=== PATIENT | female | born 1935 | race African-American/Black ===

== ENCOUNTER 2024-08-30 13:49 | Inpatient (IN) | payer MEDICARE, MEDICAID, SELFPAY ==
[2024-08-30] VITALS (15 sets, daily range): BP systolic 101–151; BP diastolic 69–115; PULSE 88–146; RESP 20–87; TEMP 36.5–38.2; O2SAT 85–100; BMI 20.9; BMI 21.5
--- NOTE | 2024-08-30 14:02 | PD.EDSOB ---
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 Per medics, ME staff reported patients spo2 dropped to 81% on room air ~ 30 minutes TECHNOLOGY RISK INTERN and on 3L was 94%, concerned patient possibly aspirated. Patient was placed on oxygen with improvement in saturations. Patient is tachycardic. No further history obtainable. Per POLST filled 05/04/2010 states full code. Medications include: Aricept 10mg, quick pen solution pen injection, Depakote, memantine chloride, Metformin, Norvasc, vitamin C, Zin, Zocor Related Data Home Medications ?Medication ?Instructions ?Recorded ?Confirmed Acetaminophen * (TYLENOL *) 2 tab G-tube Q4HR PRN PAIN #0 tabs 06/14/16 08/30/24 Metformin Hcl 1,000 mg G-tube BID ##0 01/22/17 08/30/24 amlodipine 5 mg tablet (Norvasc) 5 mg feeding tube QDAY #0 tabs 01/22/17 08/30/24 simvastatin 40 mg tablet (Zocor) 40 mg feeding tube HS #0 tabs 01/22/17 08/30/24 cranberry extract 425 mg capsule 425 mg feeding tube QDAY 01/28/24 08/30/24 divalproex 250 mg tablet,delayed 250 mg PO BID 01/28/24 08/30/24 release (Depakote) donepezil 10 mg tablet (Aricept) 10 mg feeding tube HS 01/28/24 08/30/24 insulin glargine 100 unit/mL (3 4 unit subcut QAM 01/28/24 08/30/24 mL) subcutaneous pen (Basaglar KwikPen U-100 Insulin) memantine 5 mg tablet 5 mg feeding tube HS 08/30/24 08/30/24 Allergies Allergy/AdvReac Type Severity Reaction Status Date / Time No Known Allergies Allergy Verified 08/30/24 14:38 Review of Systems Review of Systems ROS Unobtainable: unobtainable due to medical condition Past Medical History Past Medical History NEUROLOGIC: Positive Dementia CARDIAC: Positive Hypercholesterolemia and Hypertension MUSCULOSKELETAL: Positive Musculoskeletal Disorders ENDOCRINE: Positive Diabetes Mellitus Type 2 PSYCHO/SOCIAL: Positive Schizophrenia, Bipolar Disorder and Depression Social History SMOKING STATUS: Unknown if ever smoked ED Exam General Limitations: Present no limitations General appearance: Present in no apparent distress and other (Awake, non verbal, lip smaking, edentulous ) Head Head exam: Present atraumatic and normocephalic Eye Eye exam: Present normal appearance, PERRL and EOMI ENT ENT exam: Present normal oropharynx and mucous membranes dry Neck Neck exam: Present normal inspection, full ROM and trachea midline Chest Chest inspection: Present normal inspection and symmetric chest wall rise Respiratory Respiratory exam: Present normal lung sounds bilaterally Cardiovascular Cardiovascular exam: Present tachycardia (distant heart sounds ) and normal heart sounds Abdominal Exam Abdominal exam: Present soft, normal bowel sounds and other (lower midline abdominal scar, PEG tube noted ) Extremities Exam Extremities exam: Present other (RUE and BLE at the knee contracture, moves left upper extremity voluntarily, there is discharge to BL feet with bandages ) Neurological Exam Neurological exam: Present other (Awake, nonverbal, contracture of RUE, contracture of bilateral knees ) Psychiatric Psychiatric exam: Present normal mood Skin Skin exam: Present warm, dry, intact and normal color Course Quality Measures Current suspected stage: sepsis Possible source: pulmonary and wound Blood cultures ordered: completed in ED Antibiotic ordered: Yes Pertinent labs: 08/30/24 14:20 Lactic Acid 3.8 H mMol/L (0.4-2.0) Procalcitonin 0.11 ng/ml (0.0-0.49) sepsis Orders Category Date Time Status Bedside COVID-19 Antigen Test NOW Care 08/30/24 14:35 Active COVID-19 Screening Questionnaire NOW Care 08/30/24 17:01 Active Policy Intern STAT Care 08/30/24 14:38 Active Continuous Pulse Oximetry STAT Care 08/30/24 14:38 Completed Decision to Admit X1 Care 08/30/24 17:01 Active EKG (ED ONLY) *Do not use* NOW Care 08/30/24 14:38 Completed [place] to [place] Routine Care 08/30/24 14:42 Ordered In and Out Catheter X1PRN Care 08/30/24 14:38 Completed Insert IV NOW Care 08/30/24 14:38 Completed NPO STAT Care 08/30/24 14:38 Active Strict Intake and Output Routine Care 08/30/24 14:38 Ordered EKG (ED Only) Stat Exams 08/30/24 14:38 Ordered XR chest 1V SEPSIS PROTOCOL Stat Exams 08/30/24 14:42 Completed B-Type Natriuretic Peptide Stat Lab 08/30/24 14:20 Completed Blood Culture (Lab) Stat Lab 08/30/24 14:20 Received CBC Stat Lab 08/30/24 14:20 Completed Comprehensive Metabolic Panel Stat Lab 08/30/24 14:20 Completed LDH (Lactate Dehydrogenase) Stat Lab 08/30/24 14:20 Completed Lactate (Lactic Acid) Stat Lab 08/30/24 14:20 Results Lipase Stat Lab 08/30/24 14:20 Completed Magnesium Stat Lab 08/30/24 14:20 Completed Partial Thromboplastin Time Stat Lab 08/30/24 14:20 Completed Phosphorous Stat Lab 08/30/24 14:20 Completed Procalcitonin Stat Lab 08/30/24 14:20 Completed Prothrombin Time with INR Stat Lab 08/30/24 14:20 Completed Troponin I Stat Lab 08/30/24 14:20 Completed Urinalysis Stat Lab 08/30/24 14:45 Completed Wound Culture and Gram Stain Stat Lab 08/30/24 14:30 Received Acetaminophen Aleisha [Tylenol Aleisha] Med 08/30/24 14:37 Active 650 mg PO Q8H PRN Pharmacy Renal Dose Adjustment Med 08/30/24 14:37 Active 1 each XX PRN PRN Piper/Tazo 3.375 gm Premix [Zosyn] Med 08/30/24 14:37 Discontinued 3.375 gm in 50 ml IV X1 Sodium Chloride 0.9% 1000 ml [Ns] 1,641 ml Med 08/30/24 14:37 Discontinued IV 1,641 mls/hr Vancomycin/Ns 1 gm Ivpb 200 ml Med 08/30/24 14:37 Discontinued IV X1 Oxygen Delivery NOW RT 08/30/24 14:38 Active Oxygen Delivery NOW RT 08/30/24 14:41 Active Reevaluation(s) Reevaluation #1: On reassessment, patients heart rate improved, now 117 and rapid Afib. RN is about to start the fluids, will wait to reassess once IVF are completed before giving medications. Time: 15:16 Reevaluation #2: Sepsis reassessment performed consisting of lab review, vitals, physical exam. Patient has been given normal saline. Time: 16:30 Vital Signs Vital signs: Vital Signs Temperature 100.8 F H 08/30/24 13:54 Pulse Rate 146 H 08/30/24 13:54 Respiratory Rate 37 H 08/30/24 13:54 Blood Pressure 138/115 H 08/30/24 13:54 Pulse Oximetry (%) 87 L 08/30/24 13:54 Oxygen Delivery Method Room Air 08/30/24 13:54 Shortness of Breath / Dyspnea MDM Narrative MDM Narrative:: Sonali Solis am scribing for and in the presence of Dr. Bingham. 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, correction use of anti-coagulants, How is presenting disease/condition affected by chronic disease/condition?: exacerbated by Evaluation data The following diagnostics were reviewed and interpreted by me:: lab results, radiology exam(s) and EKG tracing(s) (AFib RVR, HR 129, LAD, no acute ST or T-wave changes, QRS 83ms, QT 310ms, QTc 326ms ) Lab and/or radiology exams considered but not ordered:: None Interpretation Summary: Ordering Physician: Sathya Bingham MD Date of Service: 08/30/24 Procedure(s): XR chest 1V SEPSIS PROTOCOL Accession Number(s): [id number] cc: Sathya Bingham MD; Ravindra Harrison MD; Maurizio Cardoza MD~ Examination: AP chest single view TECHNIQUE: AP portable chest single view Exam date and time: August 30, 2024 1459 hours INDICATIONS: Sepsis alert today FINDINGS: Normal heart size No pneumonia Skinfolds over the hemithoraces No pulmonary edema IMPRESSION: No pneumonia identified Dictated By: Ravindra Harrison MD Signed By: <Electronically signed by Ravindra Harrison MD in OV> 08/30/24 1658 Medications / Prescriptions Medications or Prescriptions considered but not ordered:: None Medication administrations:: Medication Administration History Acetaminophen (Acetaminophen Aleisha 325 Mg/10 Ml Udc) 650 mg PO Q8H PRN PRN Reason: Fever > 100.4 Stop: 09/29/24 14:36 Pharmacy Consult (Pharmacy Renal Dose Adjustment 1 Ea) 1 each XX PRN PRN PRN Reason: CONSULT Stop: 09/29/24 14:36 Discontinued Medications Sodium Chloride (Ns) 1,641 mls @ 1,641 mls/hr 30 ml/kg infuse over 60 min (1641 ml) IV .Q1H ONE Stop: 08/30/24 15:36 Last Admin: 08/30/24 15:06 Dose: 1,641 mls/hr Documented By: HEATHER Piperacillin/Tazobactam/Dextrose (Zosyn) 3.375 gm in 50 mls @ 100 mls/hr IV X1 ONE Stop: 08/30/24 15:06 Last Infusion: 08/30/24 15:41 Dose: Infused Documented By: Admin: 08/30/24 15:12 Dose: 100 mls/hr Documented By: HEATHER Vancomycin/Sodium Chloride (Vancomycin/Ns 1 Gm Ivpb) 200 mls @ 120 mls/hr IV X1 ONE Stop: 08/30/24 16:16 Last Admin: 08/30/24 15:41 Dose: 120 mls/hr Documented By: HEATHER See above Consultations Consultation(s) initiated? (list below): Yes Consultation #1 (Physician, Specialty, Details): I spoke with residents working with Dr. Desouza. Discussed patients PMHx, HPI, ED course, exam findings, labs, and radiology results. The hospitalist agree to accept the patient for admission. Diagnosis Shortness of Breath Differential Diagnosis: acute exacerbation of chronic obstructive airways disease, congestive heart failure, community acquired pneumonia, asthma with exacerbation and other (Aspiration pneumonia ) Most likely diagnosis given after review of the tests above:: Sepsis Infected right foot wounds aspiration pneumonitis leukocytosis elevated lactic acid hyponatremia dehydration Admission Indicated Admission indicated?: indicated Admission Request Was there a request for admission?: Yes Admission Attestation Admission request attestation: Discussed case with [] from Hospitalist service regarding admission. Discussed patients ED course, exam findings, labs, and radiology results. The Hospitalist [agrees,declines] to accept the patient for admission. Disposition Plan Disposition Plan: Admit Critical Care Time Critical Care Time Critical Care Time: Yes Total Critical Care Time (min.): 45 Attestation: The high probability of sudden, clinically significant deterioration in the patient's condition required the highest level of my preparedness to intervene urgently. The services I provided to this patient were to treat and/or prevent clinically significant deterioration. Services included the following: chart data review, reviewing nursing notes and/or old charts, documentation time, customer service consultant collaboration regarding findings and treatment options, medication orders and management, direct patient care, vital sign assessments and ordering, interpreting and reviewing diagnostic studies and lab tests. Aggregate critical care time includes only time during which I was engaged in work directly related to the patient's care, as described above, whether at bedside or elsewhere in the Emergency Department. It did not include time spent performing other reported procedures or the services of residents, students, nurses or physician assistants. Discharge Plan Plan Patient Disposition: Admit Acute Care w/in Hospital Prescriptions/Referrals Prescriptions/Med Rec: No Action Acetaminophen * (TYLENOL *) 325 MG tablet 2 tab G-tube Q4HR PRN (Reason: PAIN) Qty: 0 Patient Comments: FOR FEVER OR PAIN amlodipine [Norvasc] 5 MG tablet 5 mg feeding tube QDAY Qty: 0 simvastatin [Zocor] 40 MG tablet 40 mg feeding tube HS Qty: 0 Metformin Hcl 1,000 MG tablet 1,000 mg G-tube BID Qty: 0 cranberry extract 425 mg Capsule 425 mg feeding tube QDAY Rx Instructions: administer with a meal divalproex [Depakote] 250 mg Tablet,Delayed Release (Dr/Ec) 250 mg PO BID Patient Comments: give thru g-tube donepezil [Aricept] 10 mg Tablet 10 mg feeding tube HS insulin glargine [Basaglar KwikPen U-100 Insulin] 100 unit/mL (3 mL) Insulin Pen 4 unit SUBCUT QAM Rx Instructions: hold if bs <110 fingerstick prior to admininstration, notify MD if bs <70, >400. memantine 5 mg tablet 5 mg feeding tube HS Referrals: Maurizio Cardoza MD [Primary Care Provider] - In 1 week Problem List Clinical Impression: Sepsis, Wound of right foot, Aspiration pneumonitis, Leukocytosis, Elevated lactic acid level, Hyponatremia, Dehydration Patient/Caregiver Discharge Instructions Print Language: Somali Stand Alone Forms: Felisa Award Info., Patient Portal Info Letter
--- NOTE | 2024-08-30 14:09 | PC.NURSE ---
suction was performed as needed
--- NOTE | 2024-08-30 14:20 | PC.NURSE ---
pt brought in by ems for sob.
--- NOTE | 2024-08-30 14:21 | PC.NURSE ---
pt had a bowel movement. bowel movement was loose.
--- NOTE | 2024-08-30 14:25 | PC.NURSE ---
pts daughter aby called and asked for an update
--- NOTE | 2024-08-30 14:30 | PC.NURSE ---
provided assessed and evaluated pts wounds
--- NOTE | 2024-08-30 14:42 | XR_ITS ---
Examination: AP chest single view TECHNIQUE: AP portable chest single view Exam date and time: August 30, 2024 1459 hours INDICATIONS: Sepsis alert today FINDINGS: Normal heart size No pneumonia Skinfolds over the hemithoraces No pulmonary edema IMPRESSION: No pneumonia identified
--- NOTE | 2024-08-30 14:46 | PC.NURSE ---
wound cultures collected.
[2024-08-30 15:03] LABS: Lactate (Lactic Acid) 3.8 mMol/L (0.4-2.0)
[2024-08-30 15:05] LABS: Collection Type, Urine Clean Catch
[2024-08-30] MEDS: SODIUM CHLORIDE 0.9% 1000 ML 1,641 ML 1641 ML IV (15:06)
[2024-08-30 15:08] LABS: Basophils # (Auto) 0.1 Thou/mm3 (0.0-0.2); Basophils % (Auto) 0 % (0-2.5); Eosinophils # (Auto) 0.1 Thou/mm3 (0.0-0.5); Eosinophils % (Auto) 1 % (0-10); Hematocrit 33.6 % (36.0-46.0); Hemoglobin 9.8 g/dL (12.0-16.0); Immature Granulocytes % (Auto) 0 % (0-0); Immature Granulocytes Auto 0.08 Thou/mm3 (0.00-0.00); Lymphocytes # (Auto) 7.2 Thou/mm3 (1.0-4.8); Lymphocytes % (Auto) 40 % (10-50); Mean Corpuscular HGB Conc 29.2 g/dl (31.0-37.0); Mean Corpuscular Volume 72 fL (80-100); Monocytes % (Auto) 5 % (0-12); Neutrophils # (Auto) 9.5 Thou/mm3 (1.8-7.7); Neutrophils % (Auto) 53 % (37-80); Nucleated Red Blood Cell # 0.11 Thou/mm3 (0.00-0.00); Nucleated Red Blood Cell % 1 /100 WBC (0); Platelet Count 511 Thou/mm3 (140-440); RDW Standard Deviation 48.2 fL (36.4-46.3); Red Blood Count 4.66 Miln/mm3 (4.00-5.20)
[2024-08-30] MEDS: PIPER/TAZO 3.375 GM PREMIX 3.375 GM/50 ML BAG IV (15:12)
[2024-08-30 15:26] LABS: Alanine Aminotransferase 15 U/L (10-49); Albumin, Serum 3.7 gm/dL (3.4-4.8); Albumin/Globulin Ratio 0.8 (1.2-2.2); Alkaline Phosphatase 72 U/L (46-116); Anion Gap 12 (7-16); Aspartate Amino Transferase 30 U/L (0-34); BUN/Creatinine Ratio 40 Ratio (12-20); Bilirubin,Total < 0.2 mg/dL (0.3-1.2); Blood Urea Nitrogen 32 mg/dL (9-23); Calcium 9.1 mg/dL (8.3-10.6); Calcium (Corrected) 9.3 mg/dL (8.5-10.1); Carbon Dioxide 27.5 mMol/L (20.0-31.0); Chloride 111 mMol/L (98-107); Creatinine (Component) 0.8 mg/dL (0.6-1.3); Estimated Creatinine Clearance 41.2 mL/min (>60); Globulin 4.6 gm/dL (2.3-3.5); Glucose 173 mg/dL (74-106); LDH (Lactate Dehydrogenase) 304 U/L (120-246); Lipase 32 U/L (12-53); Magnesium 2.2 mg/dL (1.6-2.6); Osmolality,Calculated 308 (275-295); Phosphorous 3.8 mg/dL (2.4-5.1); Potassium 4.5 mMol/L (3.4-5.1); Procalcitonin 0.11 ng/ml (0.0-0.49); Sodium 150 mMol/L (136-145); Total Protein 8.3 gm/dL (5.7-8.2); Troponin I 0.022 ng/mL (0.0-0.045); eGFR > 60 See Note
[2024-08-30 15:34] LABS: Bilirubin,Urine Negative (Negative); Blood,Urine Negative (Negative); Clarity,Urine Turbid (Clear/Hazy); Color,Urine Yellow (Lt Yel-Yel); Glucose, Urine Negative (Negative); Ketones,Urine Negative (Negative); Leukocyte Esterase,Urine Negative (Negative); Nitrite,Urine Negative (Negative); Protein,Urine 1+ (Neg - Trace); RBC,Urine 3 /hpf (0-3); Specific Gravity,Urine 1.024 (1.001-1.035); Squamous Epithelial Cell,Urine 27 /hpf (0-5); Urobilinogen,Urine Negative mg/dL (0.0-1.0); WBC,Urine 1 /hpf (0-5)
[2024-08-30 15:40] LABS: Partial Thromboplastin Time 24.9 Seconds (22.0-36.0); Prothrombin Time 10.9 Seconds (9.0-12.2)
[2024-08-30] MEDS: VANCOMYCIN/NS 1 GM IVPB 200 ML IV (15:41)
[2024-08-30 15:48] LABS: B-Type Natriuretic Peptide 51 pg/mL (0-100)
--- NOTE | 2024-08-30 16:45 | PC.NURSE ---
kiko from [facility] called for an update on pt
--- NOTE | 2024-08-30 17:19 | PC.NURSE ---
titrated oxygen to 3L. o2 sats at 100%
[2024-08-30 17:52] LABS: Reflex Lactate? Y
[2024-08-30 17:59] LABS: Path Review Blood Smear Sent to Pathologist
--- NOTE | 2024-08-30 18:04 | PD.RESHP ---
Documentation for date of: 08/30/24 HPI History of Present Illness Chief complaint: desaturating History of present illness: Faby Gross is 88 yr female with PMH of schizophrenia, type 2 diabetes, hypertension, major depressive disorder, Bipolar disorder, eating disorder, dysphagia, s/p PEG tube who has presented to ED from SNF due to low oxygenation. At the facility, members noticed have some respiratory distress with pulse ox reading o2 sats around 80%. Their was concern for possible aspiration pneumonia. Due to patient's medical condition and baseline status nonverbal, history was limited. Most history was obtained through chart review. Initial evaluation in the ED shows patient to be tachycardic heart rate 146, blood pressure 138/115 mild tachypneic 37, low-grade fever 100.8, O2 saturation 81%. On room air. Labs showing leukocytosis 18, hypernatremia 150, creatinine 0.8, glucose 173, elevated lactic acid 3.8. Chest x-ray and urinalysis negative. Patient was given vancomycin x 1 and Zosyn x 1. Patient meets SIRS 4/4 with source most likely pneumonia in setting of aspiration. Sepsis alert was called. She was given fluids normal saline 1.6 L. Patient was admitted for management with antibiotics. PMH: as noted above PSH: Unknown FamHx: Unknown Social: lives at nursing facility Meds: Donepezil 10 mg at bedtime, 4 units glargine daily, Depakote 125 mg twice daily, Doculax 10 mg every 72 hours as needed, memantine 10 mg per 5 mL via G-tube at bedtime, metformin 1000 mg via G-tube, amlodipine 5 mg, simvastatin 40 mg daily. Allergies: NKDA Review of Systems Review of Systems ROS Unobtainable: unobtainable due to medical condition Exam Vital Signs Temp Pulse Resp BP Pulse Ox O2 Del Method O2 Flow Rate 98.6 F 98 23 H 137/72 H 100 Nasal Cannula 3 08/30/24 16:18 08/30/24 17:16 08/30/24 17:16 08/30/24 17:16 08/30/24 17:16 08/30/24 17:16 08/30/24 17:16 Narrative Exam General: Elderly lady, lipsmacking, occasional moaning, appears as if patient has intellectual disability HEENT: NCAT, No JVD noted. Mucosa dry, has dried vomitus or food around mouth, pupils are equal and reactive to light bilaterally Cardiovascular: Normal S1 and S2. Regular rate and rhythm. Respiratory: Lungs are clear to auscultation bilaterally. No wheezing or crackles heard. Abdomen: Soft, nontender, not distended, normal bowel sounds. Skin: Warm to touch, dry, no rashes noted Musculoskeletal: Right foot wrapped in Kerlix roll, RUE and BLE at the knee contracture, moves left upper extremity voluntarily, there is discharge to BL feet with bandages Neuro: Nonverbal, awake, orofacial movement Psych: Unable to assess Results: Labs 08/31/24 04:20 08/31/24 04:20 Labs: Short CBC 08/30/24 Range/Units 14:20 WBC 18.0 H (3.6-11.0) Thou/mm3 Hgb 9.8 L (12.0-16.0) g/dL Hct 33.6 L (36.0-46.0) % Plt Count 511 H (140-440) Thou/mm3 BMP 08/30/24 14:20 Sodium 150 H Potassium 4.5 Chloride 111 H Carbon Dioxide 27.5 BUN 32 H Creatinine 0.8 Glucose 173 H Calcium 9.1 Cardiac Enzymes 08/30/24 Range/Units 14:20 Troponin I 0.022 (0.0-0.045) ng/mL Liver Function 08/30/24 Range/Units 14:20 Total Bilirubin < 0.2 L (0.3-1.2) mg/dL AST 30 (0-34) U/L ALT 15 (10-49) U/L Alkaline Phosphatase 72 (46-116) U/L Albumin 3.7 (3.4-4.8) gm/dL Urine 08/30/24 Range/Units 14:45 Urine Color Yellow (Lt Yel-Yel) Urine Clarity Turbid A (Clear/Hazy) Urine pH 8.0 H (5.0-7.0) Ur Specific [place] 1.024 (1.001-1.035) Urine Protein 1+ A (Neg - Trace) Urine Glucose (UA) Negative (Negative) Quality Measures Quality Measures sepsis Current suspected stage: ruled out Possible source: pulmonary and wound Blood cultures ordered: completed in ED Antibiotic ordered: Yes Advance care planning discussed with:: other Medications Home Medications and Allergies Home Medications ?Medication ?Instructions ?Recorded ?Confirmed ?Type Acetaminophen * (TYLENOL *) 2 tab G-tube Q4HR PRN PAIN #0 tabs 06/14/16 08/30/24 History Metformin Hcl 1,000 mg G-tube BID ##0 01/22/17 08/30/24 History amlodipine 5 mg tablet (Norvasc) 5 mg feeding tube QDAY #0 tabs 01/22/17 08/30/24 History simvastatin 40 mg tablet (Zocor) 40 mg feeding tube HS #0 tabs 01/22/17 08/30/24 History cranberry extract 425 mg capsule 425 mg feeding tube QDAY 01/28/24 08/30/24 History divalproex 250 mg tablet,delayed 250 mg PO BID 01/28/24 08/30/24 History release (Depakote) donepezil 10 mg tablet (Aricept) 10 mg feeding tube HS 01/28/24 08/30/24 History insulin glargine 100 unit/mL (3 4 unit subcut QAM 01/28/24 08/30/24 History mL) subcutaneous pen (Basaglar KwikPen U-100 Insulin) memantine 5 mg tablet 5 mg feeding tube HS 08/30/24 08/30/24 History Allergies Allergy/AdvReac Type Severity Reaction Status Date / Time No Known Allergies Allergy Verified 08/30/24 14:38 Visit Medications Acetaminophen (Acetaminophen 325 Mg Tablet) 650 mg PO Q6H PRN PRN Reason: Fever >100.3 or pain Stop: 09/29/24 17:55 Dextrose (Dextrose 50%-Water Inj 50 Ml Syringe) 25 ml IV Q15MIN PRN PRN Reason: BG 50-70 responsive npo pt Stop: 09/29/24 17:58 Dextrose (Dextrose 50%-Water Inj 50 Ml Syringe) 50 ml IV Q15MIN PRN PRN Reason: BG <50 OR BG <70 & pt unresponsive Stop: 09/29/24 17:58 Enoxaparin Sodium (Enoxaparin Sod Inj 40 Mg/0.4 Ml Syringe) 40 mg SC QDAY BAM Stop: 09/14/24 08:59 Glucagon (Glucagon Inj 1 Mg Vial) 1 mg IM Q15MIN PRN PRN Reason: BG <70, and no IV access Sodium Chloride (Ns) 1,000 mls @ 75 mls/hr IV .[id number] BAM Stop: 08/31/24 09:19 Ceftriaxone Sodium/Dextrose (Rocephin/D5w 1gm Iv Premix) 50 mls @ 100 mls/hr IV QDAY BAM Stop: 09/06/24 17:58 Azithromycin 500 mg/ Sodium (Chloride) 250 mls @ 250 mls/hr IV QDAY [facility] Stop: 09/06/24 17:59 Insulin Human Lispro (Insulin Lispro (Admelog) 1 Unit/0.01 Ml Unit) 0 unit SC Q6HR BAM; Protocol Stop: 09/29/24 17:59 Ondansetron HCl (Ondansetron Inj 2 Mg/Ml Inj 2 Ml) 4 mg IV Q6H PRN; Protocol PRN Reason: NAUSEA OR VOMITING Stop: 09/29/24 17:55 Pharmacy Consult (Pharmacy Renal Dose Adjustment 1 Ea) 1 each XX PRN PRN PRN Reason: CONSULT Stop: 09/29/24 14:36 Sennosides (Senna Tablet) 1 tab PO QDAY PRN; Protocol PRN Reason: constipation Stop: 09/29/24 17:55 Discontinued Medications Acetaminophen (Acetaminophen Aleisha 325 Mg/10 Ml Udc) 650 mg PO Q8H PRN PRN Reason: Fever > 100.4 Stop: 09/29/24 14:36 Sodium Chloride (Ns) 1,641 mls @ 1,641 mls/hr 30 ml/kg infuse over 60 min (1641 ml) IV .Q1H ONE Stop: 08/30/24 15:36 Last Infusion: 08/30/24 17:23 Dose: Infused Piperacillin/Tazobactam/Dextrose (Zosyn) 3.375 gm in 50 mls @ 100 mls/hr IV X1 ONE Stop: 08/30/24 15:06 Last Infusion: 08/30/24 15:41 Dose: Infused Vancomycin/Sodium Chloride (Vancomycin/Ns 1 Gm Ivpb) 200 mls @ 120 mls/hr IV X1 ONE Stop: 08/30/24 16:16 Last Infusion: 08/30/24 17:23 Dose: Infused Assessment & Plan Plan Faby Gross is 88 yr female with PMH of schizophrenia, type 2 diabetes, hypertension, major depressive disorder, Bipolar disorder, eating disorder, dysphagia, s/p PEG tube who has presented to ED from SNF due to low oxygenation. At the facility, members noticed have some respiratory distress with pulse ox reading o2 sats around 80%. Their was concern for possible aspiration pneumonia. Patient meets SIRS 4/4 with source most likely pneumonia in setting of aspiration. #SIRS 4/4 # Possible aspiration pneumonia Patient came in and found to have 2 or more SIRS criteria and was evaluated for sepsis. However, based upon further work-up, sepsis was ruled out. Patient presenting with tachycardia heart rate 146, tachypnea rate 37, temperature 100.8, leukocytosis 18, lactic acid elevated 3.8. At this time source appears to be a possible aspiration pneumonia. Not yet evidenced on chest x-ray. However due to history from skilled nursing, dried vomitus/food around the mouth high suspicion of aspiration. Oxygen saturations low around 80% on admission. No evidence of endorgan damage. Chest x-ray negative, UA negative. ?IV ceftriaxone 1 g daily ? IV azithromycin 500 mg daily ? Trend lactic acid every 3 HR ? N.p.o. except for p.o. meds ? Blood cultures pending ? Foot wound culture pending ?Normal saline 75 cc/h maintenance starting 8 PM #Insulin-dependent type 2 diabetes, controlled Home medications include metformin 1000 mg twice daily and 4 units glargine daily. Seeping nutrition and medications via PEG tube. A1c 6.3 from 01/29/2024 ? Hold home medications ? Start sliding scale insulin ? Glucose checks every 6 hours ?Consult dietary team #Chronic wounds Noticed in b/L LE. -referral wound care #Hx hypertension #Hx hyperlipidemia #Hx dementia #Hx Bipolar disorder #Hx constipation Resumed home medications through G-tube ?Amlodipine 5 mg daily ? Atorvastatin 40 mg daily ? Donepezil 10 mg daily at bedtime ? Depakote 125 mg twice daily ? Senna as needed Health maintenance: Dispo: medtele, Abx for aspiration pna Diet: PEG tube feeds DVT prophylaxis: Lovenox 40 daily CODE STATUS: Full code GI: not indicated The patient's management plan was discussed with my attending physician Dr. Desouza. Rupali Weber, PGY-1 Attending Provider Attestation/Addendum I reviewed labs, imaging, EKG, home medications and prior available records. Face to face evaluation was performed by me. I have personally examined the patient and discussed assessment and plan with the IM team. I reviewed the resident note and agree with the plan with exceptions as below. Respiratory distress Acute hypoxic respiratory failure Possible aspiration pneumonia Advanced dementia, likely Alzheimer's type Dysphagia status post PEG tube Insulin-dependent diabetes mellitus Essential hypertension Hyperlipidemia Leukocytosis Microcytic anemia Elevated lactic acid Wean off oxygen as tolerated Keep the patient n.p.o. Start IV ceftriaxone Aspiration precautions Continue IV fluids Restart tube feeds after 24 hours Trend lactic acid Monitor CBC Start home antihypertensive treatment
[2024-08-30 18:24] LABS: Lactic Acid, 3 HR 2.3 mMol/L (0.4-2.0)
[2024-08-30] MEDS: cefTRIAXone/D5w 1gm IV premix 1 GM/50 ML BAG IV (18:36)
[2024-08-30] MEDS: AZITHROMYCIN INJ 500 MG in SODIUM CHLORIDE 0.9% 250 ML 250 ML 250 MG IV (19:49)
[2024-08-30] MEDS: SODIUM CHLORIDE 0.9% 1000 ML 1,000 ML 75 ML IV (21:02)
--- NOTE | 2024-08-30 21:15 | XR_ITS ---
Examination: AP chest single view TECHNIQUE: AP portable semiupright chest single view Exam date and time: August 30, 2024 2137 hours Comparison August 30, 2024 1459 hours INDICATIONS: Rapid response today shortness of breath, sepsis or FINDINGS: Normal heart size No pneumonia or pulmonary edema and Prominent osteopenia IMPRESSION: No pneumonia or pulmonary edema
[2024-08-30 21:27] LABS: Base Excess 3 (-3-3); HCO3 27 mEq/L (20-26); Inspired Oxygen, FIO2 100 %; O2 Saturation 101 % (91-98); PCO2 35 mmHg (32.0-48.0); PO2 387 mmHg (83-108); pH, Arterial 7.49 (7.35-7.45)
--- NOTE | 2024-08-30 21:27 | PC.NURSE ---
[employer] called due to hypoxia @ 60-70%. SpO2 probe replaced. pt saturating @100%. medication orders D/C'd
[2024-08-30 21:30] LABS: Allen Test Performed/OK; Puncture Site Left Radial
[2024-08-30] MEDS: DIVALPROEX SOD EC 125 MG TABEC 250 MG PO (22:09)
[2024-08-30] MEDS: DONEPEZIL HCL 5 MG TABLET 10 MG GT (22:09)
[2024-08-30] MEDS: MEMANTINE HCL 5 MG TABLET GT (22:09)
--- NOTE | 2024-08-30 22:21 | PD.RESEVENT ---
Documentation for date of: 08/30/24 Event Note Event Note: At 21: 15 p.m. rapid response was called to room 355 due to low saturation in the 70s. Patient was recently transported on the ED to the [facility] floor. Patient was started on high flow nasal cannula, maxed out at 40 L and 100% FiO2. On examination patient is moving spontaneously, appears somewhat agitated. On the baseline the patient is bedridden and nonverbal. Due to patient's moving and frequent vocalizations we were not able to get a good waveform. On examination patient does not look cyanotic, extremities warm to the touch. Pulse oximetry probe was reattached again and we managed to get reading of 100% on 100% FiO2. Patient was successfully weaned off high flow, all work up was cancelled. Plan of care discussed with attending Dr. Moore, PGY-[address] Solis. Luda Moraes MD, PGY 1.
--- NOTE | 2024-08-30 22:36 | PC.NURSE ---
Update was given to Shira Sandoval via phone conversation, explained current status and plan of care.
--- NOTE | 2024-08-30 23:56 | PC.NURSE ---
Dr mesa notified of hospital not having ordered medication simvastatin 40mg PO. Dr states it is ok to non admin the medication and he will review the chart and add an alternative.
[2024-08-31] VITALS (12 sets, daily range): BP systolic 93–117; BP diastolic 58–91; PULSE 79–110; RESP 18–26; TEMP 36.1–36.9; O2SAT 97–100; BMI 21.5; BMI 21.4
[2024-08-31] MEDS: ACETAMINOPHEN 325 MG TABLET 650 MG PO (00:26)
[2024-08-31] MEDS: DEXTROSE 5%-WATER 1,000 ML 100 ML IV ×2 (00:32→18:23)
[2024-08-31 01:07] LABS: Lactate (Lactic Acid) 1.4 mMol/L (0.4-2.0)
[2024-08-31 02:06] LABS: Alanine Aminotransferase 10 U/L (10-49); Albumin, Serum 2.9 gm/dL (3.4-4.8); Albumin/Globulin Ratio 0.8 (1.2-2.2); Alkaline Phosphatase 52 U/L (46-116); Anion Gap 9 (7-16); Aspartate Amino Transferase 18 U/L (0-34); BUN/Creatinine Ratio 37 Ratio (12-20); Bilirubin,Total 0.2 mg/dL (0.3-1.2); Blood Urea Nitrogen 26 mg/dL (9-23); Calcium 7.6 mg/dL (8.3-10.6); Calcium (Corrected) 8.5 mg/dL (8.5-10.1); Carbon Dioxide 24.9 mMol/L (20.0-31.0); Chloride 116 mMol/L (98-107); Creatinine (Component) 0.7 mg/dL (0.6-1.3); Globulin 3.5 gm/dL (2.3-3.5); Glucose 103 mg/dL (74-106); Osmolality,Calculated 302 (275-295); Sodium 150 mMol/L (136-145); Total Protein 6.4 gm/dL (5.7-8.2); eGFR > 60 See Note
[2024-08-31 05:52] LABS: Basophils # (Auto) 0.1 Thou/mm3 (0.0-0.2); Basophils % (Auto) 0 % (0-2.5); Eosinophils # (Auto) 0.1 Thou/mm3 (0.0-0.5); Eosinophils % (Auto) 1 % (0-10); Hematocrit 23.5 % (36.0-46.0); Immature Granulocytes % (Auto) 0 % (0-0); Immature Granulocytes Auto 0.05 Thou/mm3 (0.00-0.00); Lymphocytes # (Auto) 3.3 Thou/mm3 (1.0-4.8); Lymphocytes % (Auto) 20 % (10-50); Mean Corpuscular HGB Conc 29.8 g/dl (31.0-37.0); Mean Corpuscular Hemoglobin 21.3 pg (25.0-35.0); Mean Corpuscular Volume 71 fL (80-100); Monocytes # (Auto) 0.8 Thou/mm3 (0.0-0.8); Monocytes % (Auto) 5 % (0-12); Neutrophils % (Auto) 74 % (37-80); Nucleated Red Blood Cell # 0.04 Thou/mm3 (0.00-0.00); Nucleated Red Blood Cell % 0 /100 WBC (0); Platelet Count 428 Thou/mm3 (140-440); RDW Standard Deviation 46.3 fL (36.4-46.3); Red Blood Count 3.29 Miln/mm3 (4.00-5.20); White Blood Count 16.4 Thou/mm3 (3.6-11.0)
[2024-08-31 06:09] LABS: Alanine Aminotransferase 11 U/L (10-49); Albumin, Serum 2.8 gm/dL (3.4-4.8); Albumin/Globulin Ratio 0.8 (1.2-2.2); Alkaline Phosphatase 54 U/L (46-116); Anion Gap 9 (7-16); Aspartate Amino Transferase 22 U/L (0-34); BUN/Creatinine Ratio 39 Ratio (12-20); Bilirubin,Total 0.2 mg/dL (0.3-1.2); Blood Urea Nitrogen 27 mg/dL (9-23); Calcium 7.6 mg/dL (8.3-10.6); Calcium (Corrected) 8.6 mg/dL (8.5-10.1); Carbon Dioxide 25.9 mMol/L (20.0-31.0); Chloride 114 mMol/L (98-107); Creatinine (Component) 0.7 mg/dL (0.6-1.3); Globulin 3.5 gm/dL (2.3-3.5); Glucose 125 mg/dL (74-106); Magnesium 1.9 mg/dL (1.6-2.6); Osmolality,Calculated 302 (275-295); Phosphorous 3.6 mg/dL (2.4-5.1); Sodium 149 mMol/L (136-145); Total Protein 6.3 gm/dL (5.7-8.2); eGFR > 60 See Note
[2024-08-31 06:18] LABS: Glucose Estimated Average 137 mg/dL (80-131); Hemoglobin A1C 6.4 % Hgb (4.8-6.0)
--- NOTE | 2024-08-31 09:24 | XR_ITS ---
Examination: AP chest single view TECHNIQUE: AP portable semiupright chest single view Exam date 9: August 31, 2024 0937 hours Comparison August 30, 2024 INDICATIONS: Shortness of breath today FINDINGS: Pneumonia left base Right lung clear Normal heart size IMPRESSION: Interval pneumonia left base, consider aspiration pneumonia
--- NOTE | 2024-08-31 09:37 | PC.SS ---
Follow up note: High sodium. Aspiration. On IV fluids and IV antibiotic. Pt is from [facility] and will return home upon dc.
[2024-08-31] MEDS: ENOXAPARIN SOD INJ 40 MG/0.4 ML SYRINGE SC (09:42)
[2024-08-31] MEDS: VALPROIC ACID SYRUP 250 MG/5 ML UDC GT ×2 (09:42→21:13)
[2024-08-31] MEDS: amLODIPine BESYLATE 5 MG TABLET GT (09:42)
[2024-08-31 10:44] LABS: Hematocrit 24.9 % (36.0-46.0)
[2024-08-31 10:48] LABS: Hemoglobin 7.3 g/dL (12.0-16.0)
[2024-08-31 11:25] LABS: Sodium 145 mMol/L (136-145)
[2024-08-31] MEDS: cefTRIAXone/D5w 1gm IV premix 1 GM/50 ML BAG IV (13:28)
[2024-08-31] MEDS: AZITHROMYCIN INJ 500 MG in SODIUM CHLORIDE 0.9% 250 ML 250 ML 250 MG IV (14:15)
--- NOTE | 2024-08-31 14:34 | PC.DIETICIAN ---
Dietitian consult: When medically feasible, resume usual TF to run x24hrs: Glucerna 1.2 @ 70ml/hr via Gtube by pump to provide; 1680ml total vol, 2016kcal,100g protein. Give water flush of 20ml/hr or per Thank you
--- NOTE | 2024-08-31 14:54 | ESPR_ITS ---
Documentation for date of: 08/31/24 Subjective Subjective Interval history: Patient examined at bedside. Overnight she had rapid response due to desaturation in the 80s. Was on high flow nasal cannula however with repositioning of the pulse ox vitals normalized with oxygenating and 100%. She was weaned off of the high flow onto 1-2L NC with stable readings. Patient is able to follow simple commands. Morning labs showed mild hypernatremia with sodium 150. NS fluids were stopped and patient resumed with D5W. Repeated sodium was 145. Usual tube feeds to be resumed and run x24hrs. Continuing IV antibiotics for aspiration pnuemonia. Blood cultures are negative. Exam Vital Signs Temp Pulse Resp BP Pulse Ox O2 Del Method O2 Flow Rate 97.9 F 103 H 20 100/59 L 100 Nasal Cannula 1 08/31/24 11:37 08/31/24 11:46 08/31/24 11:37 08/31/24 11:37 08/31/24 11:37 08/31/24 11:37 08/31/24 11:37 Narrative Exam General: Elderly lady, lipsmacking, occasional moaning, follows simple commands HEENT: NCAT, No JVD noted. Mucosa dry, pupils are equal and reactive to light bilaterally Cardiovascular: Normal S1 and S2. Regular rate and rhythm. Respiratory: Lungs are clear to auscultation bilaterally. No wheezing or crackles heard. Abdomen: Soft, nontender, not distended, normal bowel sounds. Skin: Warm to touch, dry, no rashes noted Musculoskeletal: Right foot wrapped in Kerlix roll, RUE and BLE at the knee contracture, moves left upper extremity voluntarily, there is discharge to BL feet with bandages Neuro: Nonverbal, awake, orofacial movement Psych: Unable to assess Objective Labs 09/01/24 04:05 09/01/24 04:05 Labs: Laboratory Results - last 24 hr 08/30/24 08/30/24 08/30/24 14:20 14:45 18:10 WBC 18.0 H RBC 4.66 Hgb 9.8 L Hct 33.6 L MCV 72 L MCH 21.0 L MCHC 29.2 L RDW Std Deviation 48.2 H Plt Count 511 H Neut % (Auto) 53 Lymph % (Auto) 40 [place] % (Auto) 5 Eos % (Auto) 1 Baso % (Auto) 0 Neut # (Auto) 9.5 H Lymph # (Auto) 7.2 H [place] # (Auto) 1.0 H Eos # (Auto) 0.1 Baso # (Auto) 0.1 Immature Gran # (Auto) 0.08 H Absolute Nucleated RBC 0.11 H Immature Gran % 0 Nucleated RBC % 1 H Smear Path Review Sent to Pathologist PT 10.9 INR 1.0 APTT 24.9 Puncture Site ABG pH ABG pCO2 ABG pO2 ABG HCO3 ABG O2 Saturation ABG Base Excess FiO2 Sodium 150 H Potassium 4.5 Chloride 111 H Carbon Dioxide 27.5 Anion Gap 12 BUN 32 H Creatinine 0.8 Estim Creat Clear Calc 41.2 L eGFR > 60 BUN/Creatinine Ratio 40 H Glucose [address] Glu mg/dL Hemoglobin A1c Calculated Osmolality 308 H Lactic Acid 3.8 H 2.3 H Calcium 9.1 Corrected Calcium 9.3 Phosphorus 3.8 Magnesium 2.2 Total Bilirubin < 0.2 L AST 30 ALT 15 Alkaline Phosphatase 72 Lactate Dehydrogenase 304 H Troponin I 0.022 B-Natriuretic Peptide 51 Total Protein 8.3 H Albumin 3.7 Globulin 4.6 H Albumin/Globulin Ratio 0.8 L Lipase 32 Procalcitonin 0.11 Ur Collection Type Clean Catch Urine Color Yellow Urine Clarity Turbid A Urine pH 8.0 H Ur Specific [place] 1.024 Urine Protein 1+ A Urine Glucose (UA) Negative Urine Ketones Negative Urine Blood Negative Urine Nitrite Negative Urine Bilirubin Negative Urine Urobilinogen (Auto) Negative Ur Leukocyte Esterase Negative Urine RBC 3 Urine WBC 1 Ur Squamous Epith Cells 27 H Urine Bacteria None 08/30/24 08/31/24 08/31/24 21:20 00:53 04:20 WBC 16.4 H RBC 3.29 L Hgb 7.0 L D Hct 23.5 L D MCV 71 L MCH 21.3 L MCHC 29.8 L RDW Std Deviation 46.3 Plt Count 428 D Neut % (Auto) 74 Lymph % (Auto) 20 [place] % (Auto) 5 Eos % (Auto) 1 Baso % (Auto) 0 Neut # (Auto) 12.0 H Lymph # (Auto) 3.3 [place] # (Auto) 0.8 Eos # (Auto) 0.1 Baso # (Auto) 0.1 Immature Gran # (Auto) 0.05 H Absolute Nucleated RBC 0.04 H Immature Gran % 0 Nucleated RBC % 0 Smear Path Review PT INR APTT Puncture Site Left Radial ABG pH 7.49 H ABG pCO2 35 ABG pO2 387 H ABG HCO3 27 H ABG O2 Saturation 101 H ABG Base Excess 3 FiO2 100 Sodium 150 H 149 H Potassium 4.0 D 4.0 Chloride 116 H 114 H Carbon Dioxide 24.9 25.9 Anion Gap 9 9 BUN 26 H 27 H Creatinine 0.7 0.7 Estim Creat Clear Calc 47.0 L 47.0 L eGFR > 60 > 60 BUN/Creatinine Ratio 37 H 39 H Glucose [address] Glu mg/dL 137 H Hemoglobin A1c 6.4 H Calculated Osmolality 302 H 302 H Lactic Acid 1.4 Calcium 7.6 L D 7.6 L Corrected Calcium 8.5 8.6 Phosphorus 3.6 Magnesium 1.9 Total Bilirubin 0.2 L 0.2 L AST 18 22 ALT 10 11 Alkaline Phosphatase 52 D 54 Lactate Dehydrogenase Troponin I B-Natriuretic Peptide Total Protein 6.4 6.3 Albumin 2.9 L D 2.8 L Globulin 3.5 3.5 Albumin/Globulin Ratio 0.8 L 0.8 L Lipase Procalcitonin Ur Collection Type Urine Color Urine Clarity Urine pH Ur Specific [place] Urine Protein Urine Glucose (UA) Urine Ketones Urine Blood Urine Nitrite Urine Bilirubin Urine Urobilinogen (Auto) Ur Leukocyte Esterase Urine RBC Urine WBC Ur Squamous Epith Cells Urine Bacteria 08/31/24 10:18 WBC RBC Hgb 7.3 L Hct 24.9 L MCV MCH MCHC RDW Std Deviation Plt Count Neut % (Auto) Lymph % (Auto) [place] % (Auto) Eos % (Auto) Baso % (Auto) Neut # (Auto) Lymph # (Auto) [place] # (Auto) Eos # (Auto) Baso # (Auto) Immature Gran # (Auto) Absolute Nucleated RBC Immature Gran % Nucleated RBC % Smear Path Review PT INR APTT Puncture Site ABG pH ABG pCO2 ABG pO2 ABG HCO3 ABG O2 Saturation ABG Base Excess FiO2 Sodium 145 Potassium Chloride Carbon Dioxide Anion Gap BUN Creatinine Estim Creat Clear Calc eGFR BUN/Creatinine Ratio Glucose Estimated Ave Glu mg/dL Hemoglobin A1c Calculated Osmolality Lactic Acid Calcium Corrected Calcium Phosphorus Magnesium Total Bilirubin AST ALT Alkaline Phosphatase Lactate Dehydrogenase Troponin I B-Natriuretic Peptide Total Protein Albumin Globulin Albumin/Globulin Ratio Lipase Procalcitonin Ur Collection Type Urine Color Urine Clarity Urine pH Ur Specific [place] Urine Protein Urine Glucose (UA) Urine Ketones Urine Blood Urine Nitrite Urine Bilirubin Urine Urobilinogen (Auto) Ur Leukocyte Esterase Urine RBC Urine WBC Ur Squamous Epith Cells Urine Bacteria ABG Interpretation ABG results: 08/30/24 21:20 ABG pH 7.49 H ABG pCO2 35 ABG pO2 387 H ABG HCO3 27 H ABG O2 Saturation 101 H ABG Base Excess 3 Quality Measures Quality Measures sepsis Current suspected stage: ruled out Possible source: pulmonary and wound Blood cultures ordered: completed in ED Antibiotic ordered: Yes Advance care planning discussed with:: other Assessment & Plan Assessment Current Active Medications: Generic Name Dose Route Start Last Admin Trade Name Freq PRN Reason Stop Dose Admin Acetaminophen 650 mg 08/30/24 18:38 08/31/24 00:26 Acetaminophen 325 Mg Tablet PO 09/29/24 18:37 650 mg Q4HR PRN Administration PAIN Acetaminophen 650 mg 08/31/24 08:26 Acetaminophen 325 Mg Tablet PO 09/29/24 17:55 Q6H PRN Fever >100.3 Amlodipine Besylate 5 mg 08/31/24 09:00 08/31/24 09:42 Amlodipine Besylate 5 Mg Tablet GT 09/30/24 08:59 5 mg QDAY BAM Administration Dextrose 25 ml 08/30/24 17:59 Dextrose 50%-Water Inj 50 Ml Syringe IV 09/29/24 17:58 Q15MIN PRN BG 50-70 responsive npo pt Dextrose 50 ml 08/30/24 17:59 Dextrose 50%-Water Inj 50 Ml Syringe IV 09/29/24 17:58 Q15MIN PRN BG <50 OR BG <70 & pt unresponsive Donepezil HCl 10 mg 08/30/24 21:00 08/30/24 22:09 Donepezil Hcl 5 Mg Tablet GT 09/29/24 20:59 10 mg HS BAM Administration Enoxaparin Sodium 40 mg 08/31/24 09:00 08/31/24 09:42 Enoxaparin Sod Inj 40 Mg/0.4 Ml Syringe SC 09/14/24 08:59 40 mg QDAY BAM Administration Glucagon 1 mg 08/30/24 17:59 Glucagon Inj 1 Mg Vial IM Q15MIN PRN BG <70, and no IV access Ceftriaxone Sodium/Dextrose 1 gm in 50 mls @ 100 mls/hr 08/30/24 17:59 08/31/24 13:28 Rocephin/D5w 1gm Iv Premix IV 09/06/24 17:58 100 mls/hr QDAY@1400 BAM Administration Azithromycin 500 mg/ Sodium 250 mls @ 250 mls/hr 08/31/24 14:00 08/31/24 14:15 Chloride IV 09/07/24 13:59 250 mls/hr QDAY@1400 BAM Administration Dextrose 1,000 mls @ 100 mls/hr 08/31/24 00:30 08/31/24 00:32 D5w IV 09/30/24 00:29 100 mls/hr .Q10H BAM Administration Insulin Human Lispro 0 unit 08/30/24 18:00 08/31/24 13:54 Insulin Lispro (Admelog) 1 Unit/0.01 Ml Unit SC 09/29/24 17:59 Not Given Q6HR BAM Protocol Memantine 5 mg 08/30/24 21:00 08/30/24 22:09 Memantine Hcl 5 Mg Tablet GT 09/29/24 20:59 5 mg HS BAM Administration Home Medication- 425 mg 08/31/24 09:00 08/31/24 09:24 Please Speak With PO 09/30/24 08:59 Not Given Patient Caregiver To QDAY BAM Have Rx Brought To [facility] Ondansetron HCl 4 mg 08/30/24 17:56 Ondansetron Inj 2 Mg/Ml Inj 2 Ml IV 09/29/24 17:55 Q6H PRN NAUSEA OR VOMITING Protocol Pharmacy Consult 1 each 08/30/24 14:37 Pharmacy Renal Dose Adjustment 1 Ea XX 09/29/24 14:36 PRN PRN CONSULT Sennosides 1 tab 08/30/24 17:56 Senna Tablet PO 09/29/24 17:55 QDAY PRN constipation Protocol Simvastatin 40 mg 08/30/24 21:00 08/30/24 21:00 Simvastatin 20 Mg Tablet (Non-Form) GT 09/29/24 20:59 Not Given HS BAM Valproic Acid 250 mg 08/31/24 09:00 08/31/24 09:42 Valproic Acid Syrup 250 Mg/5 Ml Udc GT 09/30/24 08:59 250 mg BID BAM Administration Plan Faby Gross is 88 yr female with PMH of schizophrenia, type 2 diabetes, hypertension, major depressive disorder, Bipolar disorder, eating disorder, dysphagia, s/p PEG tube who has presented to ED from SNF due to low oxygenation. At the facility, members noticed have some respiratory distress with pulse ox reading o2 sats around 80%. Their was concern for possible aspiration pneumonia. Patient meets SIRS 4/4 with source most likely pneumonia in setting of aspiration. #AHRF #SIRS 4/4 # Possible aspiration pneumonia Patient came in and found to have 2 or more SIRS criteria and was evaluated for sepsis. However, based upon further work-up, sepsis was ruled out. Patient presenting with tachycardia heart rate 146, tachypnea rate 37, temperature 100.8, leukocytosis 18, lactic acid elevated 3.8. At this time source appears to be a possible aspiration pneumonia. Not yet evidenced on chest x-ray. However due to history from halfway, dried vomitus/food around the mouth high suspicion of aspiration. Oxygen saturations low around 80% on admission. No evidence of endorgan damage. Chest x-ray negative, UA negative. Blood cultures negative ?IV ceftriaxone 1 g daily ? IV azithromycin 500 mg daily ? N.p.o. except for p.o. meds ? Foot wound culture pending #Electrolyte abnormalities #Hypernatremia Difficult to assess symptoms. Sodium was 150. Normal saline maintenance fluid was stopped. ?Started on D5W -Sodium every 3 hours -Will stop D5W once within goal continue with tube feedings #Insulin-dependent type 2 diabetes, controlled Home medications include metformin 1000 mg twice daily and 4 units glargine daily. Seeping nutrition and medications via PEG tube. A1c 6.3 from 01/29/2024 ? Hold home medications ? Start sliding scale insulin ? Glucose checks every 6 hours ?Consult dietary team #Chronic wounds Noticed in b/L LE. -referral wound care #Dysphagia status post PEG tube #Hx hypertension #Hx hyperlipidemia #Hx dementia #Hx Bipolar disorder #Hx constipation Resumed home medications through G-tube -resume usual tube feeds ?Amlodipine 5 mg daily ? Atorvastatin 40 mg daily ? Donepezil 10 mg daily at bedtime ? Depakote 125 mg twice daily ? Senna as needed Health maintenance: Dispo: medtele, Abx for aspiration pna Diet: PEG tube feeds DVT prophylaxis: Lovenox 40 daily CODE STATUS: Full code GI: not indicated The patient's management plan was discussed with my attending physician Dr. Desouza. Rupali Weber, PGY-1 Attending Provider Attestation/Addendum I reviewed labs, imaging, EKG, home medications and prior available records. Face to face evaluation was performed by me. I have personally examined the patient and discussed assessment and plan with the IM team. I reviewed the resident note and agree with the plan with exceptions as below. Respiratory distress Acute hypoxic respiratory failure Possible aspiration pneumonia Advanced dementia, likely Alzheimer's type Dysphagia status post PEG tube Insulin-dependent diabetes mellitus Essential hypertension Hyperlipidemia Leukocytosis Microcytic anemia Elevated lactic acid Wean off oxygen as tolerated Patient had a temperature of 100.8 Start IV ceftriaxone Follow-up cultures Aspiration precautions Sodium increased. Started D5W. Monitor sodium level Trend lactic acid: Improved Monitor CBC: Hemoglobin dropped. Ordered FOBT Started home antihypertensive treatment
[2024-08-31 15:48] LABS: Sodium 146 mMol/L (136-145)
[2024-08-31] MEDS: DONEPEZIL HCL 5 MG TABLET 10 MG GT (21:13)
[2024-08-31] MEDS: MEMANTINE HCL 5 MG TABLET GT (21:13)
[2024-09-01] VITALS (9 sets, daily range): BP systolic 99–103; BP diastolic 67–69; PULSE 93–102; RESP 16–29; TEMP 36.2–36.8; O2SAT 99–100
[2024-09-01] MEDS: ACETAMINOPHEN 325 MG TABLET 650 MG PO (00:23)
[2024-09-01] MEDS: DEXTROSE 5%-WATER 1,000 ML 100 ML IV (05:42)
[2024-09-01 05:52] LABS: Basophils # (Auto) 0.1 Thou/mm3 (0.0-0.2); Basophils % (Auto) 0 % (0-2.5); Eosinophils # (Auto) 0.4 Thou/mm3 (0.0-0.5); Eosinophils % (Auto) 4 % (0-10); Hematocrit 26.7 % (36.0-46.0); Immature Granulocytes % (Auto) 0 % (0-0); Immature Granulocytes Auto 0.05 Thou/mm3 (0.00-0.00); Lymphocytes # (Auto) 2.9 Thou/mm3 (1.0-4.8); Lymphocytes % (Auto) 26 % (10-50); Mean Corpuscular HGB Conc 29.2 g/dl (31.0-37.0); Mean Corpuscular Hemoglobin 21.2 pg (25.0-35.0); Mean Corpuscular Volume 73 fL (80-100); Monocytes # (Auto) 0.8 Thou/mm3 (0.0-0.8); Monocytes % (Auto) 7 % (0-12); Neutrophils # (Auto) 7.2 Thou/mm3 (1.8-7.7); Neutrophils % (Auto) 63 % (37-80); Nucleated Red Blood Cell # 0.03 Thou/mm3 (0.00-0.00); Nucleated Red Blood Cell % 0 /100 WBC (0); Platelet Count 383 Thou/mm3 (140-440); Red Blood Count 3.68 Miln/mm3 (4.00-5.20); White Blood Count 11.4 Thou/mm3 (3.6-11.0)
[2024-09-01 06:12] LABS: Hemoglobin 7.8 g/dL (12.0-16.0)
[2024-09-01 06:30] LABS: Alanine Aminotransferase 9 U/L (10-49); Albumin, Serum 2.9 gm/dL (3.4-4.8); Albumin/Globulin Ratio 0.9 (1.2-2.2); Alkaline Phosphatase 59 U/L (46-116); Anion Gap 9 (7-16); Aspartate Amino Transferase 21 U/L (0-34); BUN/Creatinine Ratio 33 Ratio (12-20); Bilirubin,Total < 0.2 mg/dL (0.3-1.2); Blood Urea Nitrogen 20 mg/dL (9-23); Calcium 7.9 mg/dL (8.3-10.6); Calcium (Corrected) 8.8 mg/dL (8.5-10.1); Carbon Dioxide 24.3 mMol/L (20.0-31.0); Chloride 110 mMol/L (98-107); Creatinine (Component) 0.6 mg/dL (0.6-1.3); Estimated Creatinine Clearance 54.9 mL/min (>60); Globulin 3.4 gm/dL (2.3-3.5); Glucose 168 mg/dL (74-106); Osmolality,Calculated 291 (275-295); Potassium 3.8 mMol/L (3.4-5.1); Sodium 143 mMol/L (136-145); Total Protein 6.3 gm/dL (5.7-8.2); eGFR > 60 See Note
[2024-09-01] MEDS: SENNA TABLET 1 TAB PO (08:53)
[2024-09-01] MEDS: amLODIPine BESYLATE 5 MG TABLET GT (08:53)
[2024-09-01] MEDS: ENOXAPARIN SOD INJ 40 MG/0.4 ML SYRINGE SC (08:53)
[2024-09-01] MEDS: VALPROIC ACID SYRUP 250 MG/5 ML UDC GT (08:54)
--- NOTE | 2024-09-01 10:57 | PD.RESDS ---
Planned Discharge Date 09/01/24 DS: Providers Provider Date of admission: 08/30/24 17:50 Primary care physician: Maurizio Cardoza MD Admitting Provider: Rupali Weber MD Attending Provider on Admission: Alfred Desouza MD Consults: 08/30/24 18:01 Referral Wound Care Routine Comment: 08/30/24 18:39 Referral Registered Dietitian Urgent Comment: Instructions: Patient admitted for management of possible aspiration pneumonia. She had recently placed PEG tube in 2023. Would like to resume PEG tube feedings. Thank you. 08/30/24 23:28 Referral Registered Dietitian Routine Comment: Attending Provider on DC: Alfred Desouza MD Discharging Provider: Alfred Desouza MD DS: Diagnosis Problem List Completed Was Problem List Reviewed/Reconciled?: Yes Hospital Course Hospital Course Hospital course: Reason for hospitalization: aspiration pneumonia Faby Gross is 88 yr female with PMH of schizophrenia, type 2 diabetes, hypertension, major depressive disorder, Bipolar disorder, eating disorder, dysphagia, s/p PEG tube who presented to [facility] ED on 08/30/24 due to low oxygenation. At the facility, members noticed have some respiratory distress with pulse ox reading o2 sats around 80%. Their was concern for possible aspiration pneumonia. Due to patient's medical condition and baseline status nonverbal, history was limited. Most history was obtained through chart review. Initial evaluation in the ED shows patient to be tachycardic heart rate 146, blood pressure 138/115 mild tachypneic 37, low-grade fever 100.8, O2 saturation 81%. On room air. Labs showing leukocytosis 18, hypernatremia 150, creatinine 0.8, glucose 173, elevated lactic acid 3.8. Patient meets SIRS 4/4 with source most likely pneumonia in setting of aspiration. Patient was started on IV azithromycin and IV ceftriaxone. Hypernatremia improved with D5W, tube feeds were resumed. Blood cultures were negative and patient improved. She is now in stable condition and ready for discharge. Patient should follow up with GI specialist for workup of possible GI as her FOBT was positive. Hb remained stable during admission after initial drop from 9.8 to 7.0. Recommendations were given as below. Discharge Recommendations: Resume previous medications. Complete Augmentin 875mg BID through tube feeds from 3 more days. Treating aspiration pneumonia. Complete Azithromycin 500mg daily crushed through tube feeds for 2 more days treating pneumonia. Follow up with GI specialist outpatient for evaluation of possible GI bleed. Follow up with PCP in 1-2 weeks. Hospital Diagnoses: Respiratory distress Acute hypoxic respiratory failure Possible aspiration pneumonia Advanced dementia, likely Alzheimer's type Dysphagia status post PEG tube Insulin-dependent diabetes mellitus Essential hypertension Hyperlipidemia Leukocytosis Microcytic anemia Elevated lactic acid The patient's management plan was discussed with my attending physician Dr. Desouza. Rupali Weber MD, PGY-1 Time Spent with Patient Time attestation: Total time spent providing and/or coordinating discharge services: Time spent: Greater than 30 minutes Exam Vital Signs Temp Pulse Resp BP Pulse Ox O2 Del Method O2 Flow Rate 97.3 F 95 16 99/68 100 Nasal Cannula 1 09/01/24 07:31 09/01/24 08:53 09/01/24 07:31 09/01/24 08:53 09/01/24 07:31 09/01/24 07:31 09/01/24 07:31 Narrative Exam General: Elderly lady, lipsmacking, occasional moaning, follows simple commands HEENT: NCAT, No JVD noted. Mucosa dry, pupils are equal and reactive to light bilaterally Cardiovascular: Normal S1 and S2. Regular rate and rhythm. Respiratory: Lungs are clear to auscultation bilaterally. No wheezing or crackles heard. Abdomen: Soft, nontender, not distended, normal bowel sounds. Skin: Warm to touch, dry, no rashes noted Musculoskeletal: Right foot wrapped in Kerlix roll, RUE and BLE at the knee contracture, moves left upper extremity voluntarily, there is discharge to BL feet with bandages Neuro: Nonverbal, awake, orofacial movement Psych: Unable to assess Discharge Plan Plan Patient Disposition: Xfer Skilled Nsg Fac (SNF) Patient condition on transfer: Stable Prescriptions/Referrals Prescriptions/Med Rec: New azithromycin [Zithromax] 200 mg/5 mL suspension for reconstitution 500 mg feeding tube QDAY 2 Days Qty: 25 0RF Rx Instructions: 500 mg via feeding tube; amoxicillin-pot clavulanate [Augmentin] 250-62.5 mg/5 mL suspension for reconstitution 17.5 ml PO BID 3 Days Qty: 105 0RF Continued Acetaminophen * (TYLENOL *) 325 MG tablet 2 tab G-tube Q4HR PRN (Reason: PAIN) Qty: 0 Patient Comments: FOR FEVER OR PAIN amlodipine [Norvasc] 5 MG tablet 5 mg feeding tube QDAY Qty: 0 simvastatin [Zocor] 40 MG tablet 40 mg feeding tube HS Qty: 0 Metformin Hcl 1,000 MG tablet 1,000 mg G-tube BID Qty: 0 cranberry extract 425 mg Capsule 425 mg feeding tube QDAY Rx Instructions: administer with a meal divalproex [Depakote] 250 mg Tablet,Delayed Release (Dr/Ec) 250 mg PO BID Patient Comments: give thru g-tube donepezil [Aricept] 10 mg Tablet 10 mg feeding tube HS insulin glargine [Basaglar KwikPen U-100 Insulin] 100 unit/mL (3 mL) Insulin Pen 4 unit SUBCUT QAM Rx Instructions: hold if bs <110 fingerstick prior to admininstration, notify MD if bs <70, >400. memantine 5 mg tablet 5 mg feeding tube HS Referrals: Maurizio Cardoza MD [Primary Care Provider] - Patient/Caregiver Discharge Instructions Other Discharge Activity Instructions:: Resume previous medications. Complete Augmentin 875mg BID through tube feeds from 3 more days. Treating aspiration pneumonia. Complete Azithromycin 500mg daily crushed through tube feeds for 2 more days treating pneumonia. Follow up with GI specialist outpatient for evaluation of possible GI bleed. Follow up with PCP in 1-2 weeks. Education Materials: Preventing Common Respiratory ... Print Language: Bulgarian Stand Alone Forms: Felisa Award Info., Patient Portal Info Letter Discharge Order Discharge Orders: Discharge (Routine); Ordered 09/01/24 Ordered By: Rupali Weber Quality Discharge Quality Measures VTE prophylaxis Attestestation Attestation I reviewed labs, imaging, EKG, home medications and prior available records. Face to face evaluation was performed by me. I have personally examined the patient and discussed assessment and plan with the IM team. I reviewed the resident note and agree with the plan with exceptions as below. Respiratory distress Acute hypoxic respiratory failure Possible aspiration pneumonia Advanced dementia, likely Alzheimer's type Dysphagia status post PEG tube Insulin-dependent diabetes mellitus Essential hypertension Hyperlipidemia Leukocytosis Microcytic anemia Elevated lactic acid Oxygen needs improved Patient is afebrile and WBC is downtrending. Will discharge on p.o. Augmentin and azithromycin Follow-up cultures: Blood cultures are negative Aspiration precautions Sodium level improved Trend lactic acid: Improved Monitor CBC: Hemoglobin dropped however repeat is stable. FOBT is positive however that does not necessarily mean a GI bleed. Discussed with daughter: Outpatient follow-up with GI for colonoscopy/EGD Continue amlodipine Time spent is 40 minutes. More than 50% of the time was spent on patient education and coordination of care.
--- NOTE | 2024-09-01 12:42 | PC.SS ---
SS has setup gurney transportation with Esdras from [employer] for 3pm transportation time to [facility]. Ref# [id number].? SS has requested [facility].? Per [facility] loss control representative [facility] is not a guaranteed transport company.? Estimated time is 3-4 hours.? SS has sent patient?s facesheet and ambulance form to [facility] using Your Office Agent.? SS has spoken to Vesta from [facility] who has confirmed transportation time is 3pm to [facility]. [facility] is aware, bedside nurseHaydee is aware, Ramandeep flood is aware, Sharda at [facility] is aware. SS had informed dtr in the morning.
[2024-09-01] MEDS: cefTRIAXone/D5w 1gm IV premix 1 GM/50 ML BAG IV (14:17)
== END 2024-09-01 15:02 | disposition skilled nursing facility (03) | DRG 177 ==
LOC: SERX 17:14 → SERHOLD 18:11 → S3NX 20:09
PROVIDERS: Internal Medicine; Student in an Organized Health Care Education/Training Program; Emergency Provider Family Medicine; PCP Family Medicine; Visit Provider Student in an Organized Health Care Education/Training Program
DX: J69.0 Pneumonitis due to inhalation of food and vomit (principal); J96.01 Acute respiratory failure with hypoxia; E87.0 Hyperosmolality and hypernatremia; F03.93 Unspecified dementia, unspecified severity, with mood disturbance; E87.20 Acidosis, unspecified; R13.10 Dysphagia, unspecified; I10 Essential (primary) hypertension; F31.9 Bipolar disorder, unspecified; F20.9 Schizophrenia, unspecified; E11.9 Type 2 diabetes mellitus without complications; D50.9 Iron deficiency anemia, unspecified; F79 Unspecified intellectual disabilities; E78.5 Hyperlipidemia, unspecified; K59.00 Constipation, unspecified; Z93.1 Gastrostomy status; Z79.4 Long term (current) use of insulin; Z74.01 Bed confinement status; Z79.84 Long term (current) use of oral hypoglycemic drugs; Z79.899 Other long term (current) drug therapy
CPT/HCPCS: 36415; 36600; 71045; 80053; 81001; 82803; 83036; 83605; 83615; 83690; 83735; 83880; 84100; 84145; 84295; 84484; 85014; 85018; 85025; 85610; 85730; 87040; 87070; 87077; 87081; 87186; 87205; 87811; 93005; 93225; 96365; 96366; 96367; 99291; J0456; J0696; J1650; J2543; J3370; J7030; J7050; J7070; A9270